=== PATIENT | female | born 1935 | race Asian ===

== ENCOUNTER 2021-10-10 18:56 | Emergency (ER) | payer OTHER ==
[~2021-10-10] VITALS: Ht 157.5 cm; Wt 49.9 kg
--- NOTE | 2021-10-10 19:20 | NUR ---
JAY QUALITY AUDITOR AT PT'S BEDSIDE
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
--- NOTE | 2021-10-10 19:38 | NUR ---
BLOOD DRAWN BY MEDICAL PATHOLOGY TEACHER
--- NOTE | 2021-10-10 19:45 | NUR ---
HOT STRIP FINISHER AT BEDSIDE
--- NOTE | 2021-10-10 19:56 | NUR ---
HEEL MOLDER AT BEDSIDE
--- NOTE | 2021-10-10 20:07 | NUR ---
[facility] [phone]
--- NOTE | 2021-10-10 20:13 | NUR ---
SOUND RANGING CREWMEMBER AT PT'S BEDSIDE
--- NOTE | 2021-10-10 21:17 | NUR ---
CALLED [facility] FOR XRAY
[2021-10-10] MEDS ORDERED: KETOROLAC TROMETHAMINE INJ 60 MG/2 ML VIAL IM ONE (22:00)
[2021-10-10] MEDS ORDERED: KETOROLAC TROMETHAMINE INJ 30 MG/ML VIAL ONE (22:05)
--- NOTE | 2021-10-10 22:18 | NUR ---
TORADOL IM GIVEN R DELTOID
[2021-10-10] MEDS ORDERED: NAPR500T6 PO (22:54)
[2021-10-10] MEDS ORDERED: CYCL5TAB PO (22:54)
--- NOTE | 2021-10-10 23:21 | NUR ---
DISHARGE INSTRUCTIONS GIVEN TO PATIENT, VERBALIZES UNDERSTANDING. PT VERBALIZED PAIN IS BETTER. ALL QUESTIONS ANSWERED.
[2021-10-11 00:10] VITALS: BP 135/78
== END 2021-10-10 23:10 | disposition home or self-care (01) ==
LOC: ER 19:00
DX: S16.1XXA Strain of muscle, fascia and tendon at neck level, initial encounter (principal); S80.01XA Contusion of right knee, initial encounter; R07.89 Other chest pain; M25.562 Pain in left knee; I10 Essential (primary) hypertension; Z79.899 Other long term (current) drug therapy; V49.59XA Passenger injured in collision with other motor vehicles in traffic accident, initial encounter; Y93.89 Activity, other specified; Y92.413 State road as the place of occurrence of the external cause; Y99.8 Other external cause status
CPT/HCPCS: 36415; 71045; 72040; 73564 ×2; 84484; 93005; 96372; 99285; J1885